=== PATIENT | female | born 1990 | race Caucasian/White ===

== ENCOUNTER 2018-09-17 09:23 | Observation (INO) ==
--- NOTE | 2018-09-06 10:19 | Anesthesiology Consultation ---
Date of Service September 06, 2018 Assessment & Plan (1) Encounter for pre-operative examination: Chart Review Chart Review: Acceptable Risk for Surgery and Patient seen in Pre Admission Testing Consults Requested none Teaching & Discussion Pre-Anesthesia Teaching/Discussion Notes: Instructed NPO after midnight before surgery. History Surgery Operation Date: 09/17/18 10:20 Proposed Procedures p Bilateral Reduction Mammoplasty - Ekaterina Sainz MD Height/Weight Height: 5 ft 4 in Weight: 81 kg Allergies Allergy/AdvReac Type Severity Reaction Status Date / Time No Known Allergies Allergy Verified 09/04/18 14:54 Medications Home Medications Medication Instructions Recorded Confirmed Last Taken No Known Home Medications 09/04/18 09/04/18 Unknown Past Medical History Medical History Hx of wisdom tooth extraction No significant medical problems Past Surgical History Surgical History History of epidural anesthesia PAtient states Blood Pressure dropped Hx of arthroscopic knee surgery x2 - LEFT Nausea and vomiting after administration of anesthetic agent Past Anesthesia History No Hx of Anesthesia Complications and No Family Hx of Anesthesia Complications History of PONV Yes (After knee scope) Motion Sickness Screening History of Motion Sickness: No Social History Smoking Status: Never smoker Do You Dip or Chew Tobacco: No Hx Alcohol Use: Yes alcohol intake frequency: holidays/special occasions only Hx Substance Use: No substance use type: does not use Exercise / Class Metabolic Activity 1 > 8 Run/Swim/Ski/Tennis (Spin class, Yoga class, HIIT class weekly. Able to cl imb a FOS. Denies CP or SOB. ) Review of Systems Patient denies chest pain, shortness of breath, dyspnea on exertion, joint pain, reflux, cough, wheezing, palpitations. Physical Exam Vital Signs BP: 117/77 P: 92 R: 16 T: 98.1 SPO2: 100% on RA ENMT Thyromental Distance: > or= 3.5 Finger Breadths (4) Mallampati Class: I Neck normal visual inspection and trachea midline; neck extension not limited Respiratory normal respiratory effort Auscultation: lungs clear to auscultation bilaterally Cardiovascular Rate/Rhythm: regular rate and regular rhythm Heart Sounds: no murmur Neurologic moves all extremities Psychiatric Orientation: alert and oriented x 3 Testing Laboratory Results 09/06/18 10:47 09/06/18 10:47 PT 10.2 Seconds (9.0-12.0) 09/06/18 10:47 INR 1.0 (0.9-1.1) 09/06/18 10:47 APTT 24.0 Seconds (21.0-31.0) 09/06/18 10:47
[2018-09-06 12:10] LABS: Basophils # (auto) 0.03 K/uL (0-0.2); Basophils % (auto) 0.4 %; Eosinophils # (auto) 0.11 K/uL (0-0.5); Eosinophils % (auto) 1.4 %; Immature Granulocytes # (auto) 0.02 K/uL (0.00-0.02); Immature Granulocytes % (auto) 0.2 %; Lymphocytes # (auto) 2.23 K/uL (1.2-3.4); Lymphocytes % (auto) 27.5 %; Mean Corpuscular Hgb Conc 34.1 g/dL (32-36); Mean Corpuscular Volume 83.3 fL (80-100); Mean Platelet Volume 9.1 fL (7.4-10.4); Monocytes # (auto) 0.59 K/uL (0.11-0.59); Monocytes % (auto) 7.3 %; Neutrophils # (auto) 5.13 K/uL (1.4-6.5); Neutrophils % (auto) 63.2 %; Platelet Count 297 K/uL (130-400); RDW Coefficient of Variation 12.5 % (11.5-14.5); RDW Standard Deviation 37.7 fL (36.4-46.3); Red Blood Count 4.92 M/uL (4.2-5.4); White Blood Count 8.11 K/uL (4.8-10.8)
[2018-09-06 12:16] LABS: BUN Creatinine Ratio 13.3 (10-20); Calcium 9.1 mg/dl (8.5-10.1); Creatinine Clr Calc Pharmacy 105.9 ml/min; Est GFR (African American) 114.7; Est GFR (Non-African American) 98.9; Potassium 4.2 mmol/L (3.5-5.1)
[2018-09-06 12:20] LABS: Partial Thromboplastin Ratio 0.9; Prothrombin Time 10.2 Seconds (9.0-12.0)
[~2018-09-17 09:23] MED LIST: ACETAMINOPHEN 1000 MG/100 ML IV IV ONE; CEFAZOLIN 2000MG 2,000 MG/15 ML SYR IV SCH; LR 15ML/HR IV SCH
[2018-09-17] MEDS ORDERED: fentaNYL citrate 100 MCG/2 ML VIAL IV PRN (10:26)
[2018-09-17] MEDS ORDERED: ePHEDrine sulfate 50 MG/ML AMP IV PRN (10:26)
[2018-09-17] MEDS ORDERED: HYDROmorphone INJ 2 MG/ML SYR/VIAL IV PRN (10:26)
[2018-09-17] MEDS ORDERED: ATROPINE SULFATE 0.1 MG/ML 10ML SYR IV PRN (10:26)
[2018-09-17] MEDS ORDERED: ONDANSETRON INJ 2 MG/ML 2 ML VIAL IV PRN ×2 (10:26→16:24)
[2018-09-17] MEDS ORDERED: PROMETHAZINE HCL 12.5 MG in SODIUM CHLORIDE 0.9% 50 ML IV PRN ×2 (10:26→17:15)
[2018-09-17] MEDS ORDERED: MIDAZOLAM HCL 1 MG/ML 2ML VIAL ONE (10:31)
[2018-09-17] MEDS ORDERED: fentaNYL citrate 100 MCG/2 ML VIAL ONE ×3 (10:31→15:01)
[2018-09-17] MEDS ORDERED: LIDOCAINE/EPINEPHRINE 1% 20 ML VIAL ONE (12:02)
[2018-09-17] MEDS ORDERED: BUPIVACAINE 0.25% 30 ML VIAL ONE (12:02)
--- NOTE | 2018-09-17 12:07 | History & Physical Bridge Note ---
Date of Service September 17, 2018 History & Physical Bridge Note I have examined the patient, reviewed the History & Physical and in the interval since the performance of the History & Physical I have noted the following changes of clinical significance: no changes noted
[2018-09-17] MEDS ORDERED: ROCURONIUM BROMIDE 10 MG/ML 5 ML VIAL ONE ×6 (12:49→14:35)
[2018-09-17] MEDS ORDERED: LARYING-O-JET KIT (LTA) ONE (12:49)
[2018-09-17] MEDS ORDERED: HYDROmorphone INJ 2 MG/ML SYR/VIAL ONE (12:49)
[2018-09-17] MEDS ORDERED: LIDOCAINE HCL 2% 2 ML VIAL/AMP(20MG/ML) INFIL ONE (12:49)
[2018-09-17] MEDS ORDERED: ONDANSETRON INJ 2 MG/ML 2 ML VIAL ONE ×2 (12:49→16:35)
[2018-09-17] MEDS ORDERED: DEXAMETHASONE SOD INJ 4 MG/ML VIAL ONE (12:49)
[2018-09-17] MEDS ORDERED: PROPOFOL IV EMULSION 10 MG/ML 20 ML VIAL IV ONE (12:49)
[2018-09-17] MEDS ORDERED: GLYCOPYRROLATE 0.2 MG/ML VIAL ONE (15:08)
[2018-09-17] MEDS ORDERED: NEOSTIGMINE METHYLSULFATE 1 MG/ML 10ML VIAL ONE (15:08)
[2018-09-17] MEDS ORDERED: CEFAZOLIN 250 MG/ML 1 GM VIAL ONE (15:52)
--- NOTE | 2018-09-17 16:10 | Post Operative Brief Note ---
Immediate Post Op Note v1 Date of Surgery September 17, 2018 Pre & Post Diagnosis Operation Date: 09/17/18 12:10 Pre-Op Diagnosis: Symptomatic Macromastia Post-Op Diagnosis: Symptomatic Macromastia Procedure Operation Date: 09/17/18 12:10 Actual Procedures p Bilateral Reduction Mammoplasty(Bilateral) - Ekaterina Sainz MD Surgeon Ekaterina Sainz MD [employer] Engraver Hand Kaity Alva PA-C Estimated Blood Loss 50 Findings Consistent with Post-Op Diagnosis Drains Gabriel-Delatorre Drain
--- NOTE | 2018-09-17 16:13 | Operative Report ---
Post Operative Report Pre & Post Diagnosis Operation Date: 09/17/18 12:10 Pre-Op Diagnosis: Symptomatic Macromastia Post-Op Diagnosis: Symptomatic Macromastia Procedure Operation Date: 09/17/18 12:10 Actual Procedures p Bilateral Reduction Mammoplasty(Bilateral) - Ekaterina Sainz MD Surgeon Ekaterina Sainz MD Client Server Developer Kaity Alva PA-C Estimated Blood Loss 50 Findings Consistent with Post-Op Diagnosis Specimens left breast tissue 476 g, right breast tissue 444 g Drains JPx2 Anesthesia Type General Complications none Indications back,neck and shoulder pain due to macromastia Description of Procedure The risks, benefits, and alternatives of the procedure were explained to the patient who agreed and signed consent. She was identified and marked in the preoperative holding area. She was brought to the operating room where she was positioned supine and placed under general anesthesia without incident. Surgical site was prepped and draped sterilely. A time-out procedure was performed. I began with the left side. Markings were reassessed and a 7 cm pedicle was marked. 1% lidocaine with epinephrine was used to anesthetize the planned incisions. A 42 mm cookie cutter was used to circumscribe the nipple-areolar complex. The previously marked 7 cm pedicle was incised using a 15 blade scalpel and deepithelized. I began with the medial dissection of the pedicle using electrocautery. Cautery was used to incise through dermis and breast parenchyma down to the chest wall, taking care not to undermine the pedicle during dissection. A similar procedure was undertaken on the lateral aspect of the pedicle again taking care not to undermine. Lastly, the pedicle was dissected out superiorly using electrocautery and this was carried down to the chest wall as well. I then began with excision of the medial breast tissue followed by lateral aspect of the breast tissue and surrounding keyhole incision. A 15 blade scalpel was used to make the inframammary fold incision and electrocautery was used to deepen the incision through dermis and breast parenchyma. Dissection was then carried superiorly to the level of the superior incision. Superior incision was then incised using a 15 blade scalpel and again dissected using electrocautery. This was undertaken laterally and then around the keyhole portion of the incision. Care was taken to leave some fat on the lateral pectoralis fascia in order to protect the T4 intercostal nerve. Hemostasis was achieved with electrocautery. The specimen was passed off in its entirety for weighing. Additional resection was undertaken from the superior flap in order to facilitate closure of the breast and to provide the best shape. The total resection weight of the left breast was 476 grams. The wound was irrigated with saline and hemostasis was achieved with electrocautery. 0.25% Marcaine plain was used to anesthetize the incisions as well as the pectoralis fascia. A 15 [place] Carlos drain was brought out through a separate stab incision. The nipple-areolar complex was brought into the keyhole using 2-0 Vicryl deep dermal suture. The wound was closed first in a lateral to mid breast direction and then medial to mid breast direction using 2-0 Vicryl deep dermal sutures. Vertical limb was also approximated using 2-0 Vicryl deep dermals and the nipple-areolar complex was inset using 2-0 Vicryl deep dermal sutures. After closure with the deep dermal sutures, there was noted to be skin excess medially along the inframammary fold and vertical limb. This was marked for excision and then removed using a stra ight iris scissor. Next, the superficial dermal layer was closed using 2-0 PDO running Quill suture along the inframammary fold and 3-0 PDS interrupted dermal sutures along the vertical limb and nipple-areolar complex. Lastly 3-0 Monocryl running subcuticular suture was placed. A similar procedure was undertaken on the right side with maximal excision weight of 444 grams. Breasts were symmetric and nipple-areolar complexes were viable bilaterally following wound closure. Dermabond Prineo was applied along the inframammary fold and vertical limb and Dermabond was placed around the nipple-areolar complex. Dry dressings and a surgical bra were placed. The patient was awakened and transferred to recovery room in satisfactory condition. Kaity Alva PA-C was present and scrubbed throughout the procedure and was instrumental in providing retraction during dissection of the pedicle and assisting in wound closure. I attest to the content of the Intraoperative Record and any orders documented therein. Any exceptions are noted below.
[2018-09-17] MEDS ORDERED: ACETAMINOPHEN 325 MG TAB PO PRN (16:24)
[2018-09-17] MEDS ORDERED: OXAZEPAM 10 MG CAPSULE PO PRN (16:24)
[2018-09-17] MEDS ORDERED: MoRPHine SULFATE 2 MG/ML CARP IV PRN (16:24)
[2018-09-17] MEDS ORDERED: OXYCODONE/ACETAMINOPHEN 5mg/325mg TAB PO PRN ×2 (16:24)
[2018-09-17] MEDS ORDERED: DiphenhydrAMINE HCL 50 MG/ML VIAL IV PRN (16:24)
[2018-09-17] MEDS ORDERED: MoRPHine SULFATE 10 MG/ML CARP/VIAL IV PRN (16:24)
[2018-09-17] MEDS ORDERED: MoRPHine SULFATE 4 MG/ML 1 ML CARP\\VIAL IV PRN (16:24)
--- NOTE | 2018-09-17 16:45 | Anesthesiology Progress Note ---
Date of Service September 17, 2018 Anesthesia Post Procedure Vital Signs Vital Signs: Temp Pulse Pulse Resp BP Pulse Ox 09/17/18 16:35 95 H 14 128/83 99 09/17/18 16:25 91 H 16 151/81 H 98 09/17/18 16:18 36.4 C L 101 H 14 134/79 98 09/17/18 09:49 37 C 112 H 16 129/86 100 Notes Mental Status: alert / awake / arousable Patient Amnestic to Procedure: Yes Nausea / Vomiting: adequately controlled Pain: adequately controlled Airway Patency, RR, SpO2: stable & adequate BP & HR: stable & adequate Hydration State: stable & adequate Anesthetic Complications: no major complications apparent
[2018-09-17] MEDS ORDERED: D5W AND 1/2NSS + 20MEQ KCL 20 MEQ/1,000 ML BAG IV SCH (18:30)
[2018-09-17] MEDS: CEFAZOLIN 2000MG 2,000 MG/15 ML SYR IV SCH (21:52)
[2018-09-18] MEDS: CEFAZOLIN 2000MG 2,000 MG/15 ML SYR IV SCH (03:19)
[2018-09-18 07:22] VITALS: TEMP 98.4; O2SAT 98
--- NOTE | 2018-09-18 07:59 | Anesthesiology Progress Note ---
Date of Service September 18, 2018 Anesthesia Post Procedure Vital Signs Vital Signs: Temp Pulse Pulse Resp BP BP Pulse Ox 09/18/18 07:21 36.9 C 103 H 17 109/68 98 09/18/18 02:55 36.5 C 93 H 18 107/69 99 09/17/18 23:55 103/66 09/17/18 23:50 36.7 C 54 L 16 95/58 L 98 09/17/18 20:35 36.7 C 69 18 114/72 98 09/17/18 18:54 36.9 C 89 20 118/77 95 09/17/18 18:34 36.7 C 97 H 17 116/77 96 09/17/18 18:00 36.8 C 94 H 16 121/77 96 09/17/18 17:35 36.9 C 81 16 127/77 96 09/17/18 17:25 86 13 127/73 99 09/17/18 17:15 92 H 15 131/78 99 09/17/18 17:05 95 H 12 134/77 98 09/17/18 17:03 98 H 140/70 98 09/17/18 16:55 36.5 C 96 H 16 119/72 98 09/17/18 16:45 96 H 18 133/81 98 09/17/18 16:35 95 H 14 128/83 99 09/17/18 16:25 91 H 16 151/81 H 98 09/17/18 16:18 36.4 C L 101 H 14 134/79 98 09/17/18 09:49 37 C 112 H 16 129/86 100 Notes Mental Status: alert / awake / arousable and participated in evaluation Patient Amnestic to Procedure: Yes Nausea / Vomiting: adequately controlled Pain: adequately controlled Airway Patency, RR, SpO2: stable & adequate BP & HR: stable & adequate Hydration State: stable & adequate Anesthetic Complications: no major complications apparent and Pt Satisfied with anesthetic care
--- NOTE | 2018-09-18 08:08 | Surgery Progress Note ---
Date of Service September 18, 2018 Assessment & Plan (1) Breast hypertrophy: s/p bilateral breast reduction 1. POD#1, drains removed. wean off oxygen and ambulate in hallways prior to d/c. OK to go home after lunch when meets criteria. Subjective Patient resting comfortably in room in oxygen by nasal cannula. She had syncopal episode last night- states she used to pass out when younger and feels stable now. Physical Exam Vital Signs (Past 24 Hours): Last Vital Signs Temp 36.9 C 09/18/18 07:21 Pulse 103 H 09/18/18 07:21 Resp 17 09/18/18 07:21 BP 109/68 09/18/18 07:21 Pulse Ox 98 09/18/18 07:21 Constitutional: WD/WN, vitals as above no acute distress Skin: + incision (CDI. drains removed. nipples viable)
[2018-09-18 08:27] VITALS: PULSE 88
[2018-09-18 08:31] VITALS: BP 127/77
[2018-09-18] MEDS ORDERED: MULTIVITAMIN TAB PO SCH (09:00)
--- NOTE | 2018-09-18 14:37 | Discharge Summary ---
Date of Service September 18, 2018 Admission HPI Per Admitting Provider see admission H&P Admission Exam Per Admitting Provider see admission H&P Principal Diagnosis breast hypertrophy Discharge Exam Constitutional WD/WN, vitals as above no acute distress Skin + incision (CDI. drains removed. nipples viable) Discharge Data Allergies Allergy/AdvReac Type Severity Reaction Status Date / Time No Known Allergies Allergy Verified 09/17/18 09:48 Procedures Performed Operation Date: 09/17/18 12:10 Actual Procedures p Bilateral Reduction Mammoplasty(Bilateral) - Ekaterina Sainz MD Hospital Course (1) Breast hypertrophy: Patient presented to [facility] with history of bilateral breast hypertrophy. She was taken to the OR an underwent bilateral breast reduction. There were no intraoperative complications. On POD#1, the patient was feeling well and had good pain control. She was ambulating and tolerated a regular diet. On exam, her vital signs were stable and incision clean, dry and intact. Her drains were removed. Patient was discharged home. Total Time Total Time Spent Total Time Spent (In Minutes): 10 Total Time Includes: Examination of the Patient and Discharge Planning Discharge Plan Discharge Items Patient Disposition: Home - Self-Care Reason For Visit: Symptomatic Macromastia Discharge Diagnosis: s/p bilateral breast reduction Discharge Goals: Decrease discomfort and Improve function Activity: As commented below Non-emergency contact: Surgeon Call non-emergency contact if: you have any medication questions, your pain is not controlled, you have a fever and your wound has increased redness Follow-up/Referrals: PCP,NO [Primary Care Provider] - Diet: Regular Addtl Provider Instructions: ACTIVITY RECOMMENDATIONS: __Normal activities _x_No bending, lifting or straining __No driving __Driving allowed when you are off pain medications _x_Walking permitted __You should have help at home for ___ days DRESSINGS: __No dressings required _x_Keep dressings dry/in place until first office visit __Remove dressings ___ and leave dressings off __Apply ice ___ days __Remove dressings and reapply garment __Apply antibiotic ointment (Bacitracin, Neosporin, etc) to wounds 3-4 times/day for 10 days BATHING: _x_Keep dressings dry _x_Sponge bathing permitted __Showering permitted _x_No swimming, hot tubs or soaking in a tub MEDICATIONS: Resume previous medications unless instructed otherwise by your surgeon. _x_Do not use aspirin, Motrin, Advil or Ibuprofen as these may promote bleeding. Please use Tylenol. _x_Prescription(s) provided: pain medication was provided at your last office visit OTHER INSTRUCTIONS: __Record drain output 2-3 times per day SPECIAL CARE INSTRUCTIONS: * It is normal to have a mild fever after surgery. If your temperature is higher than 101.5 degrees F, please call the office at [phone]. * Constipation is a typical side effect of pain medication. An [id number] stool softener will help relieve this. * Leaking around surgical drains may occur and should not cause concern. Sometimes these drains become clogged. If this happens, remove the bulb and milk the clot out of the tube, then replace the bulb. * Drainage from wounds after liposuction is normal and should be expected. Garments will become soiled. You should protect furniture and bedding. This drainage should mostly subside within 2-3 days. Leave garments in place unless instructed to remove them. * If you have unusual drainage from a wound or are concerned you have an infection or have any questions or concerns, please call the office at [phone]. FOLLOW UP VISIT: If not already scheduled, please call the office, , when you return home after surgery to schedule an appointment to be seen in _1__ days. Prescriptions: No Action No Known Home Medications RF: 0 Stand-Alone Forms: [facility] Discharge Orders: Discharge Order (Routine); Ordered 09/18/18 Ordered By: Kaity Alva Admission Data Admit Date/Time: 09/17/18 16:24 Attending Provider: Ekaterina Sianz Admit Provider: Ekaterina Sainz Primary Care Provider: PCP,NO Service: Surgical Services Other Interventions: Discharge Summary Assessment (RN) Last Done: 09/18/18 08:30 Pending Studies at Discharge: Yes Studies:: pathology DC Date/Time DO NOT enter until pt leaves facility: 09/18/18 13:47
== END 2018-09-18 13:47 | disposition home or self-care (01) ==
LOC: 3N 09:23 → ASU 09:23